=== PATIENT | male | born 1990 | race Asian ===

== ENCOUNTER 2024-07-30 19:18 | Emergency (ER) | payer SELFPAY ==
[~2024-07-30] VITALS: Ht 182.9 cm; Wt 94.6 kg
[2024-07-30 19:35] VITALS: O2SAT 95
[2024-07-30] MEDS ORDERED: TETANUS, DIPHTHERIA, PERTUSSIS VAC/PF 0.5ML (>10YR OLD) IM ONE (20:15)
[2024-07-30] MEDS ORDERED: ACETAMINOPHEN 325MG TABLET PO ONE (20:15)
[2024-07-30] MEDS ORDERED: LIDOCAINE HCL 1% 20ML VIAL INFIL ONE (20:15)
[2024-07-30 20:36] VITALS: BP 134/89; PULSE 99; RESP 16; O2SAT 96
[2024-07-30 21:05] VITALS: TEMP 98.6
[2024-07-30] MEDS: ACETAMINOPHEN 325MG TABLET PO NR (21:05)
[2024-07-30] MEDS: TETANUS, DIPHTHERIA, PERTUSSIS VAC/PF 0.5ML (>10YR OLD) IM ONE (21:15)
[2024-07-30] MEDS: LIDOCAINE HCL 1% 20ML VIAL INFIL NR (22:22)
[2024-07-30] MEDS ORDERED: NAPR-681 MT (23:07)
== END 2024-07-30 23:45 | disposition home or self-care (01) ==
LOC: ER 19:18
DX: S02.5XXA Fracture of tooth (traumatic), initial encounter for closed fracture (principal); S05.40XA Penetrating wound of orbit with or without foreign body, unspecified eye, initial encounter; S01.81XA Laceration without foreign body of other part of head, initial encounter; S06.9X9A Unspecified intracranial injury with loss of consciousness of unspecified duration, initial encounter; Z79.1 Long term (current) use of non-steroidal anti-inflammatories (NSAID); W19.XXXA Unspecified fall, initial encounter; Y93.89 Activity, other specified; Y92.89 Other specified places as the place of occurrence of the external cause; Y99.8 Other external cause status
CPT/HCPCS: 73110; 73130; 70450; 70486; 72125; 90715; 12013; 90471; 99285; J3490; Z7610 ×4; 12052; A4606